=== PATIENT | male | born 1990 | race Caucasian/White ===

== ENCOUNTER → 2017-08-18 | Day surgery (SDC) | payer OTHER ==
[~2017-08-18] VITALS: Ht 182.9 cm; Wt 127.0 kg
--- NOTE | 2017-08-18 08:44 | Operative Report ---
Operative/Inv Procedure Report Surgery Date: 08/18/17 Name of Procedure: Endoscopic sinus surgery with 1. Nasal septal reconstruction 2. Middle meatal antrotomy with all polypoid tissue removal, left 3. Middle right antrotomy with antrochoanal polyp removal, right 4. Partial ethmoidectomy, bilateral 5. Partial middle turbinectomy, bilateral 6. Inferior turbinate submucous resection, bilateral Pre-Operative Diagnosis: 1. Deviated nasal septum 2. Chronic sinusitis 3. Antrochoanal polyp, right 4. Inferior turbinate hypertrophy 5. Middle turbinate hypertrophy Post-Operative Diagnosis: Same Estimated Blood Loss: less than 50ml Surgeon/Utilization Review Coordinator: Rani WRIGHT,Luz Gutierrez Anesthesia: general endotracheal tube Specimens: 1. Septum and inferior turbinates 2. Sinuses, middle turbinate, left 3. Sinuses, antrochoanal polyp, middle turbinate, right Complications: none Condition: Stable on leaving the OR Operative Indication: Difficulty breathing through the nose, nasal congestion x several years Chronic sinusitis x years Patient treated with multiple antibiotics, antihistamines, decongestants, steroid and antihistamine nasal sprays with limited improvement, with improvement but then recurrence Frequent facial pressures and headaches Examination revealed a large antrochoanal polyp on the right descending into the nasopharynx and obstructing nasopharynx bilaterally Operative/Procedure Note Note: The patient was brought to the operating room. Placed on the operating room table in supine position. At first timeout was performed identifying the patient, ID numbers and procedure to be performed. Next general oral endotracheal anesthesia was induced. Endotracheal tube was secured with tape over the left corner of the lip. Operating room table was rotated 90 to the left and patient was positioned for septal surgery with head slightly hyperextended and rotated to the right. At first vasoconstriction was carried by application of Afrin spray on cottonoid pledgets. Next nasal septum was injected with 1% lidocaine with 1: 100,000 epinephrine approximately 9 mL was injected on the right and another 6 mL on the last. This followed by placement of cotton pledgets saturated with cocaine solution and Afrin spray. Patient's face was then prepped and draped in routine manner and surgery was performed. A right hemitransfixion incision was placed and anterior mucoperichondrial tunnel was elevated followed by posterior mucoperiosteal tunnel. Bony cartilaginous junction was identified and and mucoperiosteal tunnel was elevated on the contralateral side. And anteriorly there was cartilaginous deviation to the right. Adjacent to this delivery crest was protruding to the right obstructing the anterior inferior nasal airway. The cartilage was removed in a piecemeal manner followed by chiseling of the maxillary crest which relieved the inferior obstruction. Posteriorly there was vomerine bone protrusion to the right. The vomerine bone was removed in a piecemeal manner which relieved posterior obstruction. Then I anterior superior bony cartilaginous junction was quadrangular cartilage and its attachment to the perpendicular plate of the ethmoid. Some of the perpendicular plate was removed and the superior obstruction was relieved. Once the septoplasty was completed, prior to closure, right middle turbinate and middle meatus were injected with 3 mL cc of 1% lidocaine with 1:100,000 epinephrine. This followed by placement of cottonoid pledgets saturated with Afrin and cocaine. Septoplasty incision was closed with 5-0 chromic simple sutures. Followed by a mattress sutures with 5-0 chromic. Please note that the entire septoplasty was carried with 0 scope as well as directed visualization with a headlight. Upon closure of septoplasty incision injection was carried out on the right. Left middle turbinate and middle meatus were injected with 3 cc of 1% lidocaine with 1:100,000 epinephrine. This followed by placement of cottonoid pledgets saturated with Afrin and cocaine. Next endoscopic sinus surgery was carried out, first on the right and then on the left. The surgery was carried with direct visualization with 0 and 30 scopes. At first on the right, middle turbinate was reduced along its inferior border with Gruenwald forceps. Middle meatus was entered and partial ethmoidectomy was carried. The ethmoid air cells were removed with the straight and up turned to Kashif-Mauricio forceps. Ethmoid air cells were obstructed with hyperplastic mucosa. There was significant bony hyperostosis. Once ethmoidectomy was completed. Maxillary sinus ostium was visualized. There was polypoid staff extruding for the maxillary sinus ostium which extended posteriorly into a large polyp the antrochoanal polyp was obstructing the entire inferior middle meatus that was extending into the nasopharynx with obstruction of the nasopharynx. The polyp was grasped by its pedicle and slowly advanced out of the nasal fossa and removed. The polyp was approximately a 3 x 5 cm in size. Examination of the middle meatal peña showed large maxillary sinus ostium. Additional polypoid tissue was then removed from the maxillary sinus with Kashif-Blakesley forceps followed by Vinnie forceps. At the end of the maxillary sinus ostium and the sinus itself were completely cleared this was confirmed with 70 scope. Uncinate process was partially removed with Setliff forceps. Curved ball seeker was used to probe for the natural maxillary sinus ostium. The ostium was then dilated with curved suction. Polypoid tissue was removed. Surgery was completed on the right. Next surgery was carried on the left. Again the middle turbinate was reduced along its inferior border with Gruenwald forceps. Then partial ethmoidectomy was carried. Both bone and mucosa were removed. The mucosa was hyperplastic and bone hyperostotic. Once ethmoidectomy was completed maxillary sinus ostium was searched for. Partial uncinectomy was carried with Setliff forceps. Curved ball seeker was used to search for the maxillary ostium. Ostium was dilated with a curved suction. There was also a large accessory ostium. Visualization of the maxillary sinus with 30 followed by 70 scope revealed polypoid mucosa which was removed with the curved suction. Sinus surgery was completed. Next inferior turbinates were then in and outfractured and excised in submucous manner. This was done with 0 scope visualization. Surgery was completed. Nasal packing was applied next. Gelfilm rolled up into a roll was placed into the middle meatus 2 pieces on each side, secured with 2-0 silk which was then taped to the cheeks with Steri-Strips. Nasal fossa was packed with Telfa saturated with Bactroban ointment. Telfa was stitched anteriorly with 2-0 silk to prevent posterior displacement. Surgery was completed. The patient was reawakened, extubated and taken to the recovery room in good condition. There were no complications. Estimated blood was was 30 mL. Findings: 1. Nasal septum- deviated to the right anterior inferior ends to the right posterior vomerine bone with spurring 2. Ethmoid sinuses- hyperplastic mucosa 3. Maxillary sinus, left- polypoid tissue 4. Maxillary sinus, right- large antrochoanal polyp extending from the middle meatus into the inferior nasal fossae and nasopharynx with obstruction of nasopharynx bilaterally 4. Middle turbinates- hypertrophy with obstruction of the middle meatus bilateral 5. Inferior Turbinates- hypertrophy with obstruction of the inferior meatus Discharge Disposition: PACU
== END ==
LOC: STS 02:30
DX: J34.2 Deviated nasal septum (principal); J32.8 Other chronic sinusitis; J33.8 Other polyp of sinus; J34.3 Hypertrophy of nasal turbinates; R09.81 Nasal congestion; K21.9 Gastro-esophageal reflux disease without esophagitis; E66.9 Obesity, unspecified; Z68.39 Body mass index [BMI] 39.0-39.9, adult
CPT/HCPCS: C9399; J0131; J0690; J1100